=== PATIENT | female | born 1995 | race Hispanic/Latino ===

== ENCOUNTER 2019-09-28 01:35 | Emergency (ER) | payer SELFPAY ==
[2019-09-28] MEDS ORDERED: Lidocaine 1% w/Epinephrine 1:100K 20 ML VIAL ONE (02:26)
[2019-09-28] MEDS ORDERED: Bacitracin 1 PK ONE (03:00)
== END 2019-09-28 03:14 | disposition home or self-care (01) ==
LOC: ERS 01:35
DX: S01.85XA Open bite of other part of head, initial encounter (principal); S01.21XA Laceration without foreign body of nose, initial encounter; W54.0XXA Bitten by dog, initial encounter
CPT/HCPCS: 12013

== ENCOUNTER 2019-10-05 13:02 | Emergency (ER) | payer SELFPAY | END 2019-10-05 13:36 | disposition home or self-care (01) | LOC: ERS 13:02 | DX: S01.511D Laceration without foreign body of lip, subsequent encounter (principal); W54.0XXD Bitten by dog, subsequent encounter ==